=== PATIENT | female | born 1950 | race Caucasian/White ===

== ENCOUNTER 2020-07-20 09:45 | Outpatient (CLI) | payer BC ==
--- NOTE | 2020-07-20 10:05 | RAD ---
RADIOGRAPH CHEST 2 VIEW: DATE: 07/20/2020 TIME: 10:01 AM HISTORY: 69-year-old female with cough COMPARISON: 10/06/2007 FINDINGS: There is a new finding of silhouetting of the left hemidiaphragm on the frontal view. Lateral view de monstrates small platelike density at posterior base of left lower lobe. The rest of the lungs are clear. No pleural effusion or pneumothorax. Cardiomediastinal silhouette is normal. IMPRESSION: Small pulmonary parenchymal density at posterior base of left lower lobe. This is probably subsegment al atelectasis. Early pneumonia is less likely but possible. If symptoms persist, short interval follow-up two-view chest radiograph is recommended.
== END 2020-07-20 09:46 | disposition home or self-care (01) ==
LOC: NAV RAD 09:45
PROVIDERS: ATTEND Physician Assistant Medical
DX: R05 Cough (principal); K21.01 Gastro-esophageal reflux disease with esophagitis, with bleeding; J98.4 Other disorders of lung
CPT/HCPCS: 71046

== ENCOUNTER 2020-08-03 09:25 | Outpatient (CLI) | payer BC ==
--- NOTE | 2020-08-03 09:45 | RAD ---
EXAM: Two views chest PROVIDED CLINICAL HISTORY: Abnormal chest radiograph COMPARISON: 07/20/2020 FINDINGS: Cardiac and mediastinal silhouette appears within normal limits. Lungs appear free of significant opa city. No pleural fluid or pneumothorax apparent. IMPRESSION: No evidence for an acute cardiopulmonary process.
== END 2020-08-03 09:26 | disposition home or self-care (01) ==
LOC: NAV RAD 09:25
PROVIDERS: ATTEND Physician Assistant Medical
DX: R91.8 Other nonspecific abnormal finding of lung field (principal)
CPT/HCPCS: 71046